=== PATIENT | male | born 1990 | race Caucasian/White ===

== ENCOUNTER 2019-10-22 02:05 | Emergency (ER) | payer OTHER, BC ==
[~2019-10-22] VITALS: Ht 167.6 cm; Wt 89.4 kg
[~2019-10-22 02:05] MED LIST: CRUTCH4 USE; IBUP800 PO; TRAM50 PO
== END 2019-10-22 04:10 | disposition home or self-care (01) ==
LOC: ER 02:05
DX: S16.1XXA Strain of muscle, fascia and tendon at neck level, initial encounter (principal); S00.83XA Contusion of other part of head, initial encounter; F17.220 Nicotine dependence, chewing tobacco, uncomplicated; Z88.5 Allergy status to narcotic agent; V89.2XXA Person injured in unspecified motor-vehicle accident, traffic, initial encounter
CPT/HCPCS: 70450; 72125; 96372; 99284-25; J1885; L0160